=== PATIENT | male | born 1985 | race Two or more races ===

== ENCOUNTER 2023-07-15 04:00 | Emergency (ER) | payer SELFPAY ==
[2023-07-15] MEDS ORDERED: Tetracaine HCl/PF 0.5% 4 ML Bottle EYEBOTH ONE (04:11)
[2023-07-15] MEDS ORDERED: Fluorescein 1 MG Ophth Strip EYEBOTH ONE (04:37)
== END 2023-07-15 05:13 | disposition home or self-care (01) ==
LOC: MW.ED 04:00
DX: H10.213 Acute toxic conjunctivitis, bilateral (principal)
CPT/HCPCS: 99282; 99283; J3490